=== PATIENT | female | born 1960 | race Two or more races ===

== ENCOUNTER 2019-01-12 16:32 | Emergency (ER) | payer OTHER ==
[~2019-01-12] VITALS: Ht 170.2 cm; Wt 103.4 kg
[~2019-01-12 16:32] MED LIST: ACID REDUCER20 MG PO; ASPI325EC PO; BISA5EC PO; Crestor20 MG PO; Diclofenac Sod100 MG PO; ERGOCAL2500 UNIT PO; FURO20 PO; HYOS.125 PO; K-Dur20 MEQ PO; LOVA20; Lotensin Hct 21 EAC1 PO; Mobic15 MG PO; Omeprazole20 M1 PO; RANI150; SENN187 PO; ZESTRIL40 MG PO; [UNRECOGNIZED DRUG - CODE]
[2019-01-12 17:11] LABS: BASOPHILS ABSOLUTE AUTO 0.03 K/mm3 (0.00-0.23); BASOPHILS PERCENT AUTO 0 % (0-2); EOSINOPHILS ABSOLUTE AUTO 0.14 K/mm3 (0.00-0.68); EOSINOPHILS PERCENT AUTO 2 % (0-6); Hematocrit 41.6 % (33.0-51.0); Hemoglobin 13.6 g/dL (11.5-16.0); IMMATURE GRAN ABSOLUTE AUTO 0.02 K/mm3 (0.00-0.10); IMMATURE GRAN PERCENT AUTO 0 % (0-1); LYMPHOCYTES ABSOLUTE AUTO 2.58 K/mm3 (0.84-5.20); LYMPHOCYTES PERCENT AUTO 33 % (21-46); MONOCYTES PERCENT AUTO 8 % (4-13); Mean Corpuscular HGB 27.8 pg (26.0-34.0); Mean Corpuscular HGB Conc 32.7 g/dL (31.5-36.5); Mean Corpuscular Volume 85 fL (80-100); Mean Platelet Volume 10.5 fL (9.1-12.4); NEUTROPHILS ABSOLUTE AUTO 4.52 K/mm3 (1.96-9.15); NEUTROPHILS PERCENT AUTO 57 % (41-73); Platelet Count 339 K/mm3 (150-400); RDW Coefficient Variation 12.6 % (11.7-14.2); RDW Standard Deviation 39.2 fL (35.1-46.3); White Blood Cell Count 7.89 K/mm3 (4.00-11.30)
[2019-01-12 17:27] LABS: Alanine Aminotransfer (ALT/SGP 29 U/L (12-78); Albumin, Blood 3.9 g/dL (3.4-5.0); Alk Phos 69 U/L (50-136); Anion Gap 5 mmol/L (6-16); Aspartate Aminotrans (AST/SGOT 19 U/L (12-37); Bilirubin, Total 0.6 mg/dL (0.1-1.0); Blood Urea Nitrogen 15 mg/dL (8-24); Bun/Creatinine Ratio 15.7 (12.0-20.0); CO2, Blood 28 mmol/L (21-32); Calcium, Blood 9.4 mg/dL (8.5-10.1); Chloride, Blood 104 mmol/L (98-108); Creatinine, Blood 0.95 mg/dL (0.40-1.00); Globulin, Blood 4.1 g/dL (2.2-4.0); Glomerular Filtration Rate >60 (60-); Glucose, Blood 103 mg/dL (70-99); Potassium, Blood 4.1 mmol/L (3.5-5.5); Sodium, Blood 137 mmol/L (136-145)
[2019-01-12] MEDS ORDERED: Carafate1 GM/10 ML PO (19:28)
== END 2019-01-12 20:09 | disposition home or self-care (01) ==
LOC: ER 16:32
PROVIDERS: Emergency Medicine
DX: R10.13 Epigastric pain (principal); Z79.899 Other long term (current) drug therapy; G56.00 Carpal tunnel syndrome, unspecified upper limb
CPT/HCPCS: 36415; 71046; 80053; 83690; 84484; 85025; 93005; 93010; 96361; 96374; 99285-25; J2405; J7030

== ENCOUNTER 2021-12-25 10:33 | Day surgery (SDC) | payer OTHER ==
[~2021-12-25] VITALS: Ht 170.2 cm; Wt 121.2 kg
[~2021-12-25 10:33] MED LIST changes: +Aldactone50 MG PO; +Carafate1 GM/10 ML PO; +LOSA50 PO; +OMEP20ER PO
--- NOTE | 2021-12-25 12:05 | NUR ---
History, Chart, Medications and Allergies reviewed before start of procedure.Patient confirms NPO status and agrees with scheduled surgery. Pre-Op teaching done. Pt verbalizes understanding.
[2021-12-26 05:06] LABS: BASOPHILS ABSOLUTE AUTO 0.03 K/mm3 (0.00-0.23); BASOPHILS PERCENT AUTO 0 % (0-2); EOSINOPHILS ABSOLUTE AUTO 0.14 K/mm3 (0.00-0.68); EOSINOPHILS PERCENT AUTO 2 % (0-6); Hematocrit 33.9 % (33.0-51.0); IMMATURE GRAN ABSOLUTE AUTO 0.03 K/mm3 (0.00-0.10); IMMATURE GRAN PERCENT AUTO 0 % (0-1); LYMPHOCYTES ABSOLUTE AUTO 1.51 K/mm3 (0.84-5.20); LYMPHOCYTES PERCENT AUTO 17 % (21-46); MONOCYTES ABSOLUTE AUTO 0.86 K/mm3 (0.16-1.47); MONOCYTES PERCENT AUTO 10 % (4-13); Mean Corpuscular HGB 27.5 pg (26.0-34.0); Mean Corpuscular HGB Conc 32.4 g/dL (31.5-36.5); Mean Corpuscular Volume 85 fL (80-100); Mean Platelet Volume 10.5 fL (9.1-12.4); NEUTROPHILS ABSOLUTE AUTO 6.18 K/mm3 (1.96-9.15); NEUTROPHILS PERCENT AUTO 71 % (41-73); Platelet Count 296 K/mm3 (150-400); RDW Coefficient Variation 13.1 % (11.7-14.2); RDW Standard Deviation 40.8 fL (35.1-46.3); White Blood Cell Count 8.75 K/mm3 (4.00-11.30)
--- NOTE | 2021-12-26 05:28 | NUR ---
PT [place] A&OX4[place] [facility] [place] AND IS ABLE TO MAKE NEEDS KNOWN. POST OF DAY 1 FOR L TKA, HAS LICHA WRAP IN PLACE, SENSATION AND PULSES DISTAL TO SURGICAL SITE. PT HAD SOME TROUBLE VOIDING IN PACU AND HAD TO BE STRAIGHT CATHED. TOLERATING REGULAR DIET. PAIN CONTROLLED WITH PRN KRYSTAL 5MG. WILL CONTINUE TO MONITOR PT FOR ACUTE CHANGES.
[2021-12-26 05:51] LABS: Bun/Creatinine Ratio 13.9 (12.0-20.0); Calcium, Blood 8.5 mg/dL (8.5-10.1); Creatinine, Blood 1.15 mg/dL (0.40-1.00)
[2021-12-26] MEDS ORDERED: ASPI81CH PO (08:00)
[2021-12-26] MEDS ORDERED: ROXICODONE5 MG PO (08:01)
[2021-12-26] MEDS ORDERED: BACTRIM DS TAB1 EAC6 PO (08:02)
[2021-12-26] MEDS ORDERED: PROM12.5S PO (08:02)
--- NOTE | 2021-12-26 08:15 | NUR ---
12/26/21 0815 Nereida Frias VERIFICATIONS: EDIT CHART.
--- NOTE | 2021-12-26 14:07 | NUR ---
A Pt. spiritual care request. Pt. is sitting up in bed and welcomes my visit. Pt. is unsettled about the pain she is experiencing post surgery. Normalize the Pt. experience and give aids counselor regarding the recovery process. Establish rapport. Pt. displays evidence of engagement and agreement. Prayed with Pt. Pt. verbalized gratitude for the Spiritual Care visit.
--- NOTE | 2021-12-26 14:57 | NUR ---
DISCHARGE POD 1 LTKA. PT CLEARED THERAPY, DENIED PAIN DURING SHIFT. TOLERATING PO, SLIGHT NAUSEA THIS AM, RESOLVED WITH ZOFRAN. DENIED OTHERWISE. ALL DISCHARGE INSTRUCTIONS GONE OVER WITH PATIENT, IV REMOVED. PT DENIED FURTHER QUESTIONS AT THIS TIME. CASSANDRA GUZMÁN SENT WITH PATIENT. PRESCRIPTIONS PICKED UP PRIOR TO ARRIVAL FOR PROCEDURE.
== END 2021-12-26 14:42 | disposition home or self-care (01) ==
LOC: ORSCMMR 10:33 → ORD 14:15 → SURS 17:06 → ORSCMMR 12-26 14:42
PROVIDERS: Orthopaedic Surgery
PROC: 0SRD0J9 Replacement of Left Knee Joint with Synthetic Substitute, Cemented, Open Approach (ICD-10-PCS; principal; 2021-12-25 14:15)
PROC: 8E0YXBZ Computer Assisted Procedure of Lower Extremity (ICD-10-PCS; principal; 2021-12-25 14:15)
DX: M17.0 Bilateral primary osteoarthritis of knee (principal); E66.01 Morbid (severe) obesity due to excess calories; Z68.41 Body mass index [BMI] 40.0-44.9, adult; I10 Essential (primary) hypertension; E78.5 Hyperlipidemia, unspecified; F41.8 Other specified anxiety disorders; K21.9 Gastro-esophageal reflux disease without esophagitis; Z79.899 Other long term (current) drug therapy
CPT/HCPCS: 36415; 73560-LT; 80048; 83735; 85025; 97110; 97116; 97162; 97530; A9270; C1713; C1776; J0171; J0690; J0735; J1885; J2250; J2405; J2550; J2704; J2765; J2795; J3010; J7120

== ENCOUNTER 2022-02-16 19:16 | Emergency (ER) | payer OTHER ==
[~2022-02-16] VITALS: Ht 170.2 cm; Wt 108.9 kg
[~2022-02-16 19:16] MED LIST changes: +ASPI81CH PO; +BACTRIM DS TAB1 EAC6 PO; +PROM12.5S PO; +ROXICODONE5 MG PO
[2022-02-16 20:37] LABS: Influenza A, PCR NEGATIVE (NEGATIVE); Influenza B, PCR NEGATIVE (NEGATIVE); Resp Syncytial Virus, PCR NEGATIVE (NEGATIVE)
[2022-02-16 20:50] LABS: SARS-Cov-2 (COVID-19) PCR, MMC POSITIVE (NEGATIVE)
[2022-02-16] MEDS ORDERED: BENZ100A PO (22:06)
== END 2022-02-16 22:29 | disposition home or self-care (01) ==
LOC: ER 19:16
PROVIDERS: Physician Assistant
DX: U07.1 COVID-19 (principal); M25.562 Pain in left knee; J40 Bronchitis, not specified as acute or chronic; Z68.37 Body mass index [BMI] 37.0-37.9, adult; E66.9 Obesity, unspecified; Z79.899 Other long term (current) drug therapy; Z79.82 Long term (current) use of aspirin
CPT/HCPCS: 0241U

== ENCOUNTER 2022-03-18 07:30 | Day surgery (SDC) | payer OTHER ==
[~2022-03-18] VITALS: Ht 170.2 cm; Wt 120.8 kg
[~2022-03-18 07:30] MED LIST changes: +BENZ100A PO
--- NOTE | 2022-03-18 10:48 | NUR ---
03/18/22 1048 JADA POST PT IS TOLERATING PO INTAKE, DENIES CONT NAUSEA. PT REPORTS PAIN IS A 7/10 AND THIS IS TOLERABLE. SHE DENIES NEED FOR ADDITIONAL IV PAIN MEDICINE. SHE IS ASKING FOR A RISER FOR THE TOILET AND A RX FOR ONE FOR [facility]. I ADVISED DR. GROSSMAN HAS ALREADY LEFT BUT i WILL CALL HIS OFFICE AND ASK FOR AN RX FOR THIS TO BE SENT TO [facility]. SHE IS AGREEABLE.
== END 2022-03-18 11:10 | disposition home or self-care (01) ==
LOC: ORSCSDS 07:30
PROVIDERS: Orthopaedic Surgery
PROC: 0SNDXZZ Release Left Knee Joint, External Approach (ICD-10-PCS; principal; 2022-03-18 09:00)
DX: M24.662 Ankylosis, left knee (principal); Z96.652 Presence of left artificial knee joint; I10 Essential (primary) hypertension; E78.5 Hyperlipidemia, unspecified; F41.8 Other specified anxiety disorders; E66.9 Obesity, unspecified; Z68.41 Body mass index [BMI] 40.0-44.9, adult; Z86.16 Personal history of COVID-19; Z79.899 Other long term (current) drug therapy
CPT/HCPCS: J1100; J1885; J2405; J2704; J3010; J7120

== ENCOUNTER → 2022-12-05 | Outpatient (CLI) | payer OTHER ==
[2022-12-05 12:55] LABS: Microalbumin, Urine Quant. <5.000 mg/L (0.000-20.000); Protein, Urine Quantitative <5.0 mg/dL (0.0-11.9)
== END | disposition home or self-care (01) ==
LOC: LAB SHORT 10:13
PROVIDERS: Internal Medicine Nephrology
DX: N18.30 Chronic kidney disease, stage 3 unspecified (principal); D63.1 Anemia in chronic kidney disease; N25.81 Secondary hyperparathyroidism of renal origin; E55.9 Vitamin D deficiency, unspecified; E78.00 Pure hypercholesterolemia, unspecified; R76.9 Abnormal immunological finding in serum, unspecified; R94.5 Abnormal results of liver function studies; R94.6 Abnormal results of thyroid function studies; D51.8 Other vitamin B12 deficiency anemias; D52.8 Other folate deficiency anemias; D50.9 Iron deficiency anemia, unspecified
CPT/HCPCS: 81050; 82043; 82570; 84156

== ENCOUNTER → 2023-10-12 | Outpatient (CLI) | payer OTHER ==
[2023-10-12 13:32] LABS: Microalbumin, Urine Quant. <5.000 mg/L (0.000-20.000); Protein, Urine Quantitative <5.0 mg/dL (0.0-11.9)
== END ==
LOC: LAB 10:11 → LAB SHORT 10:11
PROVIDERS: Internal Medicine Nephrology
DX: N18.1 Chronic kidney disease, stage 1 (principal); D63.1 Anemia in chronic kidney disease; N25.81 Secondary hyperparathyroidism of renal origin; E55.9 Vitamin D deficiency, unspecified; E78.00 Pure hypercholesterolemia, unspecified; R76.9 Abnormal immunological finding in serum, unspecified; R94.5 Abnormal results of liver function studies; R94.6 Abnormal results of thyroid function studies; D51.8 Other vitamin B12 deficiency anemias; D52.8 Other folate deficiency anemias; D50.9 Iron deficiency anemia, unspecified
CPT/HCPCS: 81050; 82043; 82570; 84156